=== PATIENT | female | born 1985 | race Caucasian/White ===

== ENCOUNTER 2017-11-07 08:34 | Inpatient (IN) | payer OTHER ==
[2017-11-07 09:21] VITALS: BMI 22.3
--- NOTE | 2017-11-07 10:46 | HP ---
COWS - Scale Resting Pulse: 2= [place] 101-120 Sweatin= Chills/Flushing Restless Observation: 1= Difficult to Sit Still Pupil Size: 1= Pupils >than Normal Bone or Joint Aches: 1= Mild Discomfort Runny Nose/ Eye Tearin= Nasal Congestion GI Upset > 30mins: 2= Nausea/Diarrhea Tremor Observation: 1= Tremor [place], Not Seen Yawning Observation: 2= >3x During Session Anxiety or Irritability: 1=Feels Anxious/Irritable Goose Flesh Skin: 3=Piloerection COWS Score: 16 CIWA Score - CIWA Score Nausea/Vomitin Muscle Tremors: 3 Anxiety: 4-Mod. Anxious/Guarded Agitation: 2 Paroxysmal Sweats: 3 Orientation: 0-Oriented Tacttile Disturbances: 0-None Auditory Disturbances: 0-None Visual Disturbances: 0-None Headache: 0-None Present CIWA-Ar Total Score: 15 Admission ROS BHS - HPI Chief Complaint: alcohol and heroin and benzodiazepine sx when she does not use Allergies/Adverse Reactions: Allergies Allergy/AdvReac Type Severity Reaction Status Date / Time amoxicillin Allergy Severe Difficulty Verified 11/07/17 10:02 Breathing Penicillins Allergy Severe Difficulty Verified 11/07/17 10:01 Breathing History of Present Illness: 31 yo f with polysubstance use and dependence, heroin, klonapin, alcohol and crack cocaine - heavy use last week. Has withdrawal sx when she stops using, very tired at this point and poor historian. last used this am, requested suboxone detox but discussed that methadone would be safer beasue of recent heroin use. will consider [facility] suboxone in rehab. after detox h/o seizure 2/2 cocaine use, give h/o hallucinations and dts when she has stopped using inthe past. smokes 1PPD pmhx ptsd, cutter, suicide attmepts in past, thirsty anxiety depression and insomnia reported Exam Limitations: No Limitations - Ebola screening Have you traveled outside of the country in the last 21 days: No (N) Have you had contact with anyone from an Ebola affected area: No Have you been sick,other than usual withdrawal symptoms: No Do you have a fever: No - Review of Systems Constitutional: Chills, Loss of Appetite, Malaise, Night Sweats, Changes in sleep, Unintentional Wgt. Loss EENT: reports: Tearing, Nose Congestion Respiratory: reports: No Symptoms reported Cardiac: reports: No Symptoms Reported GI: reports: Diarrhea, Nausea, Poor Appetite, Poor Fluid Intake, Indigestion, Abdominal cramping : reports: No Symptoms Reported Musculoskeletal: reports: Back Pain, Muscle Pain Integumentary: reports: Flushing, Sweating Neuro: reports: Seizure (from cocaien use in past), Tremors Endocrine: reports: Flushing, Increased Thirst Hematology: reports: No Symptoms Reported Psychiatric: reports: Judgement Intact, Mood/Affect Appropiate, Orientated x3, Anxious, Depressed Other Systems: Reviewed and Negative Patient History - Patient Medical History Hx Anemia: No Hx Asthma: No Hx Chronic Obstructive Pulmonary Disease (COPD): No Hx Cancer: No Hx Cardiac Disorders: No Hx Congestive Heart Failure: No Hx Hypertension: No Hx Hypercholesterolemia: No Hx Pacemaker: No HX Cerebrovascular Accident: No Hx Seizures: No Hx Dementia: No Hx Diabetes: No Hx Gastrointestinal Disorders: No Hx Liver Disease: No Hx Genitourinary Disorders: No Hx Sexually Transmitted Disorders: No Hx Renal Disease (ESRD): No Hx Thyroid Disease: No Hx Human Immunodeficiency Virus (HIV): No Hx Hepatitis C: No Hx Depression: No Hx Suicide Attempt: Yes (h/o OD, no SI at this time) Hx Bipolar Disorder: No Hx Schizophrenia: No Other Medical History: PTSD, former cutter - Patient Surgical History Past Surgical History: No - PPD History Previous Implant?: Yes Documented Results: Negative w/o proof Implanted On Prior R Admission?: No - Reproductive History Last Menstrual Period: 10/24/17 Patient : No - Smoking Cessation Smoking history: Current every day smoker Have you smoked in the past 12 months: Yes Aproximately how many cigarettes per day: 20 Hx Chewing Tobacco Use: No Initiated information on smoking cessation: Yes 'Breaking Loose' booklet given: 11/07/17 - Substance & Tx. History Hx Alcohol Use: Yes Hx Substance Use: Yes Substance Use Type: Alcohol, Cocaine, Heroin, Marijuana, Opiates, Prescribed, Tranquilizers Hx Substance Use Treatment: Yes - Substances Abused Alcohol Route: Oral Frequency: Daily Amount used: whiskey(1 quart) Age of first use: 16 Date of Last Use: 11/06/17 Cocaine Route: Inhalation Frequency: Daily Amount used: 2 grams Age of first use: 17 Date of Last Use: 11/05/17 Crack Route: Smoking Frequency: Daily Amount used: $60-100 Age of first use: 29 Date of Last Use: 11/07/17 Heroin Route: Inhalation Frequency: Daily Amount used: 10 bags Age of first use: 29 Date of Last Use: 11/06/17 Benzodiazepine (Klonopin) Route: Oral Frequency: Daily Amount used: 4-6 pills Age of first use: 28 Date of Last Use: 11/06/17 Alprazolam (Xanax) Route: Oral Frequency: Daily Amount used: 2mg bar Age of first use: 30 Date of Last Use: 11/06/17 Family Disease History - Family Disease History Family Disease History: Other: Father (alcoholism), Mother (opiate addiction and crack cocaine) Admission Physical Exam S - Vital Signs Vital Signs: Vital Signs - 24 hr 11/07/17 09:16 Temperature 98.7 F Pulse Rate 101 H Respiratory 20 Rate Blood Pressure 117/76 - Physical General Appearance: Yes: Nourished, Appropriately Dressed, Disheveled, Mild Distress, Thin, Tremorous, Irritable, Sweating, Anxious HEENTM: Yes: Within Normal Limits, EOMI, Hearing grossly Normal, Normal ENT Inspection, Normocephalic, Normal Voice, NAVI, Pharynx Normal, Nasal Congestion , Rhinorrhea Respiratory: Yes: Within Normal Limits, Chest Non-Tender, Lungs Clear, Normal Breath Sounds, No Respiratory Distress, No Accessory Muscle Use Neck: Yes: Within Normal Limits, No masses,lesions,Nodules, Supple, Trachea in good position Breast: Yes: Breast Exam Deferred Cardiology: Yes: Within Normal Limits, Regular Rhythm, Regular Rate, S1, S2 Abdominal: Yes: Within Normal Limits, Normal Bowel Sounds, Non Tender, Flat, Soft, Increased Bowel Sounds Genitourinary: Yes: Within Normal Limits Back: Yes: Normal Inspection, Muscle Spasm Musculoskeletal: Yes: full range of Motion, Gait Steady, Pelvis Stable, Back pain, Muscle Pain Extremities: Yes: Normal Capillary Refill, Normal Range of Motion, Tremors, Other (old cutting scars) Neurological: Yes: 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, Fully Oriented, Alert, Motor Strength 5/5, Normal Response, Depressed Affect Integumentary: Yes: Normal Color, Warm, Diaphoresis, Track Byn[place] (no infection) , Other (poor skin trugor) Lymphatic: Yes: Within Normal Limits - Diagnostic (1) Opioid dependence with withdrawal Current Visit: Yes Status: Acute (2) Sedative, hypnotic or anxiolytic dependence with withdrawal, uncomplicated Current Visit: Yes Status: Acute (3) Cocaine dependence Current Visit: Yes Status: Acute (4) Nicotine dependence Current Visit: Yes Status: Acute (5) Alcohol dependence with uncomplicated withdrawal Current Visit: Yes Status: Acute (6) PTSD (post-traumatic stress disorder) Current Visit: Yes Status: Acute (7) Suicide attempt Current Visit: Yes Status: Acute (8) Dehydration Current Visit: Yes Status: Acute Cleared for Admission [facility] - Detox or Rehab [facility] Level of Care: Medically Managed Detox Regimen/Protocol: Methadone/Valium [facility] Breath Alcohol Content Breath Alcohol Content: 0 Urine Pregancy Test - Result Urine Test Results: Negative- NO Line Present Urine Drug Screen - Results Drug Screen Negative: No Urine Drug Screen Results: THC-Marijuana, BAUTISTA-Cocaine, OPI-Opiates, AMP- Amphetamines, BZO-Benzodiazepines
[2017-11-07] MEDS ORDERED: MAG HYDROX/AL HYDROX/SIMETH 30 ML UNIT-DOSE CUP PO PRN (10:52)
[2017-11-07] MEDS ORDERED: P-EPHED 60MG/TRIPROLIDI 2.5MG TABLET PO PRN (10:52)
[2017-11-07] MEDS ORDERED: MAGNESIUM CITRATE 300 ML BOTTLE PO PRN (10:52)
[2017-11-07] MEDS ORDERED: MAGNESIUM HYDROX 2400MG/30ML ORAL SUSPENSION 30 ML CUP PO PRN (10:52)
[2017-11-07] MEDS ORDERED: MENTHOL/PHENOL 1 EACH UD MM PRN (10:52)
[2017-11-07] MEDS ORDERED: LOPERAMIDE HCL 2 MG CAPSULE PO PRN (10:52)
[2017-11-07] MEDS ORDERED: ACETAMINOPHEN 325 MG TABLET (FP) PO PRN (10:52)
[2017-11-07] MEDS ORDERED: guaiFENesin/D-METHORPHAN HB 10 ML UNIT-DOSE CUPS PO PRN (10:52)
[2017-11-07] MEDS ORDERED: diazePAM 5 MG TABLET PO ONE (11:15)
[2017-11-07] MEDS ORDERED: METHADONE HCL 10 MG TABLET (FOR DETOX USE ONLY) PO ONE ×2 (11:16→23:00)
[2017-11-07] MEDS: NICOTINE 21 MG/24 HOURS TOPICAL PATCH TD SCH (12:12)
[2017-11-07] MEDS: diazePAM 5 MG TABLET PO SCH ×2 (15:38→22:33)
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
[2017-11-07 17:05] LABS: URINE APPEARANCE SLCLOUDY; URINE BILIRUBIN NEGATIVE (NEGATIVE); URINE BLOOD 1+ (NEGATIVE); URINE COLOR DKYELLOW; URINE GLUCOSE (UA) NEGATIVE (NEGATIVE); URINE KETONE TRACE (NEGATIVE); URINE LEUK ESTERASE NEGATIVE (NEGATIVE); URINE NITRITE POSITIVE (NEGATIVE); URINE PROTEIN NEGATIVE (NEGATIVE); URINE UROBILINOGEN NEGATIVE mg/dL (0.2-1.0)
[2017-11-07] MEDS: NICOTINE POLACRILEX 4 MG GUM BUC PRN (18:12)
[2017-11-07] MEDS: diazePAM 5 MG TABLET PO PRN (18:12)
[2017-11-07 18:26] LABS: CALCIUM OXALATE CRYSTALS FEW /hpf (NONE SEEN); EPI CELLS RARE /HPF (FEW); URINE BACTERIA MODERATE /hpf (NONE SEEN); URINE MUCUS MANY
[2017-11-07] MEDS: GABAPENTIN 100 MG CAPSULE (FP) PO SCH (22:32)
[2017-11-07] MEDS: THIAMINE HCL 100 MG TABLET (FP) PO SCH (22:32)
[2017-11-08] MEDS: diazePAM 5 MG TABLET PO SCH ×3 (05:55→22:23)
[2017-11-08] MEDS: GABAPENTIN 100 MG CAPSULE (FP) PO SCH ×3 (05:55→22:22)
[2017-11-08] MEDS ORDERED: METHADONE HCL 10 MG TABLET (FOR DETOX USE ONLY) PO SCH (10:00)
[2017-11-08 10:05] LABS: HEMATOCRIT 42.2 % (32.4-45.2); HEMOGLOBIN 13.7 GM/dL (10.7-15.3); MCHC 32.5 g/dl (32.0-36.0); MEAN CELL VOLUME 92.4 fl (80-96); MEAN PLT VOLUME 10.8 fl (7.5-11.1); PLATELET COUNT 258 K/MM3 (134-434); RBC 4.56 M/mm3 (3.60-5.2); RDW 14.4 % (11.6-15.6); WHITE BLOOD COUNT 10.5 K/mm3 (4.0-10.0)
[2017-11-08 10:21] LABS: CHLORIDE 104 mmol/L (98-107); POTASSIUM 3.9 mmol/L (3.5-5.1); SODIUM 139 mmol/L (136-145)
[2017-11-08] MEDS: NICOTINE 21 MG/24 HOURS TOPICAL PATCH TD SCH (10:23)
[2017-11-08] MEDS: PRENATAL VITAMINS W/ FOLIC ACID TABLET (FP) PO SCH (10:24)
[2017-11-08] MEDS: NICOTINE POLACRILEX 4 MG GUM BUC PRN ×4 (10:24→22:25)
[2017-11-08] MEDS: diazePAM 5 MG TABLET PO PRN ×2 (10:25→17:14)
[2017-11-08 10:34] LABS: ALBUMIN 3.8 g/dl (3.4-5.0); ALK PHOS 79 U/L (45-117); ANION GAP 6 (8-16); BILIRUBIN,TOTAL 0.4 mg/dL (0.2-1.0); BLOOD UREA NITROGEN 9 mg/dL (7-18); CO2 29 mmol/L (21-32); CREATININE 0.7 mg/dL (0.55-1.02); GLUCOSE,RANDOM 101 mg/dL (74-106); SGOT/AST 14 U/L (15-37); SGPT/ALT 21 U/L (12-78); TOT PROT 6.6 g/dl (6.4-8.2)
--- NOTE | 2017-11-08 11:30 | EKG ---
Test Reason : Blood Pressure : / mmHG Vent. Rate : 093 BPM Atrial Rate : 093 BPM P-R Int : 118 ms QRS Dur : 084 ms QT Int : 356 ms P-R-T Axes : 060 046 046 degrees QTc Int : 442 ms NORMAL SINUS RHYTHM POSSIBLE LEFT ATRIAL ENLARGEMENT BORDERLINE ECG NO PREVIOUS ECGS AVAILABLE Confirmed by JAYNE HERNANDEZ, SHAI ([id number]) on 11/08/2017 11:29:33 AM Referred By: Confirmed By:SHAI GODOY MD
--- NOTE | 2017-11-08 15:20 | PN ---
[facility] CIWA - CIWA Score Nausea/Vomitin Muscle Tremors: 2 Anxiety: 3 Agitation: 3 Paroxysmal Sweats: 2 Orientation: 0-Oriented Tacttile Disturbances: 2-Mild Itch/Numbness/Burn Auditory Disturbances: 0-None Visual Disturbances: 0-None Headache: 0-None Present CIWA-Ar Total Score: 14 S COWS - Scale Resting Pulse: 1= [place] 81-100 Sweatin=Flushed/Facial Moisture Restless Observation: 1= Difficult to Sit Still Pupil Size: 1= Pupils >than Normal Bone or Joint Aches: 1= Mild Discomfort Runny Nose/ Eye Tearin= Nasal Congestion GI Upset > 30mins: 1= Stomach Cramp Tremor Observation of Outstretched Hands: 2= Slight Tremor Visible Yawning Observation: 0= None Anxiety or Irritability: 2=Irritable/Anxious Goose Flesh Skin: 0=Smooth Skin COWS Score: 12 S Progress Note (SOAP) Subjective: Aches, nausea & vomiting, Objective: 11/08/17 15:28 Vital Signs Temperature 98.4 F 11/08/17 14:08 Pulse Rate 93 H 11/08/17 14:08 Respiratory Rate 18 11/08/17 14:08 Blood Pressure 117/74 11/08/17 14:08 O2 Sat by Pulse Oximetry (%) Laboratory Last Values WBC 10.5 K/mm3 (4.0-10.0) H 11/08/17 06:00 RBC 4.56 M/mm3 (3.60-5.2) 11/08/17 06:00 Hgb 13.7 GM/dL (10.7-15.3) 11/08/17 06:00 Hct 42.2 % (32.4-45.2) 11/08/17 06:00 MCV 92.4 fl (80-96) 11/08/17 06:00 MCH 30.0 pg (25.7-33.7) 11/08/17 06:00 MCHC 32.5 g/dl (32.0-36.0) 11/08/17 06:00 RDW 14.4 % (11.6-15.6) 11/08/17 06:00 Plt Count 258 K/MM3 (134-434) 11/08/17 06:00 MPV 10.8 fl (7.5-11.1) 11/08/17 06:00 Sodium 139 mmol/L (136-145) 11/08/17 06:00 Potassium 3.9 mmol/L (3.5-5.1) 11/08/17 06:00 Chloride 104 mmol/L (98-107) 11/08/17 06:00 Carbon Dioxide 29 mmol/L (21-32) 11/08/17 06:00 Anion Gap 6 (8-16) L 11/08/17 06:00 BUN 9 mg/dL (7-18) 11/08/17 06:00 Creatinine 0.7 mg/dL (0.55-1.02) 11/08/17 06:00 Creat Clearance w eGFR > 60 (>60) 11/08/17 06:00 Random Glucose 101 mg/dL (74-106) 11/08/17 06:00 Calcium 9.0 mg/dL (8.5-10.1) 11/08/17 06:00 Total Bilirubin 0.4 mg/dL (0.2-1.0) 11/08/17 06:00 AST 14 U/L (15-37) L 11/08/17 06:00 ALT 21 U/L (12-78) 11/08/17 06:00 Alkaline Phosphatase 79 U/L (45-117) 11/08/17 06:00 Total Protein 6.6 g/dl (6.4-8.2) 11/08/17 06:00 Albumin 3.8 g/dl (3.4-5.0) 11/08/17 06:00 Urine Color Dkyellow 11/07/17 13:00 Urine Appearance Slcloudy 11/07/17 13:00 Urine pH 5.0 (5.0-8.0) 11/07/17 13:00 Ur Specific [place] 1.020 (1.001-1.035) 11/07/17 13:00 Urine Protein Negative (NEGATIVE) 11/07/17 13:00 Urine Glucose (UA) Negative (NEGATIVE) 11/07/17 13:00 Urine Ketones Trace (NEGATIVE) H 11/07/17 13:00 Urine Blood 1+ (NEGATIVE) H 11/07/17 13:00 Urine Nitrite Positive (NEGATIVE) 11/07/17 13:00 Urine Bilirubin Negative (NEGATIVE) 11/07/17 13:00 Urine Urobilinogen Negative mg/dL (0.2-1.0) 11/07/17 13:00 Ur Leukocyte Esterase Negative (NEGATIVE) 11/07/17 13:00 Urine WBC (Auto) 3 /hpf (3-5) 11/07/17 13:00 Urine RBC (Auto) 7 /hpf (0-3) 11/07/17 13:00 Ur Epithelial Cells Rare /HPF (FEW) 11/07/17 13:00 Calcium Oxalate Crystal Few /hpf (NONE SEEN) 11/07/17 13:00 Urine Bacteria Moderate /hpf (NONE SEEN) 11/07/17 13:00 Urine Mucus Many 11/07/17 13:00 RPR Titer Nonreactive (NONREACTIVE) 11/08/17 06:00 HIV 1&2 Antibody Screen Negative 11/07/17 11:00 HIV P24 Antigen Negative 11/07/17 11:00 Labs noted: UA with positive Nitrites Assessment: 11/08/17 15:30 Withdrawal symptoms UTI Plan: Continue detox Urine Culture, Bactrim BID
[2017-11-08] MEDS ORDERED: SULFAMETHOXAZOLE/TRIMETHOPRIM 800MG/160MG D.S. TABLET PO ONE (15:57)
[2017-11-08] MEDS: IBUPROFEN 400 MG TABLET (FP) PO PRN ×2 (16:21→22:24)
[2017-11-08] MEDS: SULFAMETHOXAZOLE/TRIMETHOPRIM 800MG/160MG D.S. TABLET PO SCH (22:22)
[2017-11-08] MEDS: THIAMINE HCL 100 MG TABLET (FP) PO SCH (22:23)
[2017-11-09] MEDS: GABAPENTIN 100 MG CAPSULE (FP) PO SCH ×3 (05:21→22:10)
[2017-11-09] MEDS: diazePAM 5 MG TABLET PO PRN ×2 (05:22→14:08)
[2017-11-09] MEDS: NICOTINE POLACRILEX 4 MG GUM BUC PRN ×6 (05:23→22:14)
[2017-11-09] MEDS: METHADONE HCL 5 MG TABLET (FOR DETOX USE ONLY) PO SCH (10:27)
[2017-11-09] MEDS: diazePAM 5 MG TABLET PO SCH ×2 (10:27→22:10)
[2017-11-09] MEDS: SULFAMETHOXAZOLE/TRIMETHOPRIM 800MG/160MG D.S. TABLET PO SCH ×2 (10:27→22:10)
[2017-11-09] MEDS: NICOTINE 21 MG/24 HOURS TOPICAL PATCH TD SCH (10:27)
[2017-11-09] MEDS: PRENATAL VITAMINS W/ FOLIC ACID TABLET (FP) PO SCH (10:27)
[2017-11-09] MEDS: IBUPROFEN 400 MG TABLET (FP) PO PRN ×2 (10:31→22:11)
--- NOTE | 2017-11-09 11:32 | PN ---
[facility] CIWA - CIWA Score Nausea/Vomitin Muscle Tremors: 3 Anxiety: 3 Agitation: 3 Paroxysmal Sweats: 1-Minimal Palms Moist Orientation: 0-Oriented Tacttile Disturbances: 0-None Auditory Disturbances: 0-None Visual Disturbances: 0-None Headache: 0-None Present CIWA-Ar Total Score: 12 S COWS - Scale Resting Pulse: 1= [place] 81-100 Sweatin=Flushed/Facial Moisture Restless Observation: 3= Extraneous Movement Pupil Size: 0= Normal to Room Light Bone or Joint Aches: 1= Mild Discomfort Runny Nose/ Eye Tearin= Nasal Congestion GI Upset > 30mins: 1= Stomach Cramp Tremor Observation of Outstretched Hands: 2= Slight Tremor Visible Yawning Observation: 0= None Anxiety or Irritability: 2=Irritable/Anxious Goose Flesh Skin: 0=Smooth Skin COWS Score: 13 [facility] Progress Note (SOAP) Subjective: Sweats, chills, tremors c/o vag discharge with fishy odor Objective: 11/09/17 11:35 Vital Signs Temperature 98.1 F 11/09/17 10:00 Pulse Rate 93 H 11/09/17 10:00 Respiratory Rate 16 11/09/17 10:00 Blood Pressure 122/71 11/09/17 10:00 O2 Sat by Pulse Oximetry (%) Laboratory Last Values WBC 10.5 K/mm3 (4.0-10.0) H 11/08/17 06:00 RBC 4.56 M/mm3 (3.60-5.2) 11/08/17 06:00 Hgb 13.7 GM/dL (10.7-15.3) 11/08/17 06:00 Hct 42.2 % (32.4-45.2) 11/08/17 06:00 MCV 92.4 fl (80-96) 11/08/17 06:00 MCH 30.0 pg (25.7-33.7) 11/08/17 06:00 MCHC 32.5 g/dl (32.0-36.0) 11/08/17 06:00 RDW 14.4 % (11.6-15.6) 11/08/17 06:00 Plt Count 258 K/MM3 (134-434) 11/08/17 06:00 MPV 10.8 fl (7.5-11.1) 11/08/17 06:00 Sodium 139 mmol/L (136-145) 11/08/17 06:00 Potassium 3.9 mmol/L (3.5-5.1) 11/08/17 06:00 Chloride 104 mmol/L (98-107) 11/08/17 06:00 Carbon Dioxide 29 mmol/L (21-32) 11/08/17 06:00 Anion Gap 6 (8-16) L 11/08/17 06:00 BUN 9 mg/dL (7-18) 11/08/17 06:00 Creatinine 0.7 mg/dL (0.55-1.02) 11/08/17 06:00 Creat Clearance w eGFR > 60 (>60) 11/08/17 06:00 Random Glucose 101 mg/dL (74-106) 11/08/17 06:00 Calcium 9.0 mg/dL (8.5-10.1) 11/08/17 06:00 Total Bilirubin 0.4 mg/dL (0.2-1.0) 11/08/17 06:00 AST 14 U/L (15-37) L 11/08/17 06:00 ALT 21 U/L (12-78) 11/08/17 06:00 Alkaline Phosphatase 79 U/L (45-117) 11/08/17 06:00 Total Protein 6.6 g/dl (6.4-8.2) 11/08/17 06:00 Albumin 3.8 g/dl (3.4-5.0) 11/08/17 06:00 Urine Color Dkyellow 11/07/17 13:00 Urine Appearance Slcloudy 11/07/17 13:00 Urine pH 5.0 (5.0-8.0) 11/07/17 13:00 Ur Specific [place] 1.020 (1.001-1.035) 11/07/17 13:00 Urine Protein Negative (NEGATIVE) 11/07/17 13:00 Urine Glucose (UA) Negative (NEGATIVE) 11/07/17 13:00 Urine Ketones Trace (NEGATIVE) H 11/07/17 13:00 Urine Blood 1+ (NEGATIVE) H 11/07/17 13:00 Urine Nitrite Positive (NEGATIVE) 11/07/17 13:00 Urine Bilirubin Negative (NEGATIVE) 11/07/17 13:00 Urine Urobilinogen Negative mg/dL (0.2-1.0) 11/07/17 13:00 Ur Leukocyte Esterase Negative (NEGATIVE) 11/07/17 13:00 Urine WBC (Auto) 3 /hpf (3-5) 11/07/17 13:00 Urine RBC (Auto) 7 /hpf (0-3) 11/07/17 13:00 Ur Epithelial Cells Rare /HPF (FEW) 11/07/17 13:00 Calcium Oxalate Crystal Few /hpf (NONE SEEN) 11/07/17 13:00 Urine Bacteria Moderate /hpf (NONE SEEN) 11/07/17 13:00 Urine Mucus Many 11/07/17 13:00 RPR Titer Nonreactive (NONREACTIVE) 11/08/17 06:00 HIV 1&2 Antibody Screen Negative 11/07/17 11:00 HIV P24 Antigen Negative 11/07/17 11:00 Labs noted, UA positive for nitrites 11/09/17 11:39 Assessment: 11/09/17 11:38 withdrawal sx BV Plan: Continue detox Continue Bactrim
[2017-11-09] MEDS: hydrOXYzine PAMOATE 50 MG CAPSULE (FP) PO PRN (22:11)
[2017-11-09] MEDS: THIAMINE HCL 100 MG TABLET (FP) PO SCH (22:42)
[2017-11-10] MEDS: GABAPENTIN 100 MG CAPSULE (FP) PO SCH ×3 (05:20→22:24)
[2017-11-10] MEDS: diazePAM 5 MG TABLET PO PRN (05:22)
[2017-11-10] MEDS: NICOTINE POLACRILEX 4 MG GUM BUC PRN ×5 (05:23→22:25)
[2017-11-10] MEDS: diazePAM 5 MG TABLET PO SCH ×2 (10:32→22:23)
[2017-11-10] MEDS: NICOTINE 21 MG/24 HOURS TOPICAL PATCH TD SCH (10:32)
[2017-11-10] MEDS: METHADONE HCL 5 MG TABLET (FOR DETOX USE ONLY) PO SCH (10:32)
[2017-11-10] MEDS: PRENATAL VITAMINS W/ FOLIC ACID TABLET (FP) PO SCH (10:32)
[2017-11-10] MEDS: SULFAMETHOXAZOLE/TRIMETHOPRIM 800MG/160MG D.S. TABLET PO SCH ×2 (10:32→22:23)
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
[2017-11-10] MEDS: metroNIDAZOLE 250 MG TABLET PO SCH ×2 (14:02→22:23)
[2017-11-10] MEDS: IBUPROFEN 400 MG TABLET (FP) PO PRN (15:35)
[2017-11-10] MEDS: hydrOXYzine PAMOATE 50 MG CAPSULE (FP) PO PRN (17:25)
[2017-11-10] MEDS: THIAMINE HCL 100 MG TABLET (FP) PO SCH (22:23)
[2017-11-11] MEDS: NICOTINE POLACRILEX 4 MG GUM BUC PRN ×4 (01:11→22:09)
[2017-11-11] MEDS: hydrOXYzine PAMOATE 50 MG CAPSULE (FP) PO PRN ×4 (01:11→22:09)
[2017-11-11] MEDS: metroNIDAZOLE 250 MG TABLET PO SCH ×3 (05:18→22:09)
[2017-11-11] MEDS: GABAPENTIN 100 MG CAPSULE (FP) PO SCH ×3 (05:18→22:09)
[2017-11-11] MEDS: IBUPROFEN 400 MG TABLET (FP) PO PRN ×2 (05:21→17:18)
[2017-11-11] MEDS ORDERED: METHADONE HCL 10 MG TABLET (FOR DETOX USE ONLY) PO SCH (10:00)
[2017-11-11] MEDS ORDERED: diazePAM 5 MG TABLET PO SCH (10:00)
--- NOTE | 2017-11-11 10:18 | PN ---
[facility] Progress Note (SOAP) Subjective: sweats anxiety interrupted sleep Objective: 11/11/17 10:17 Vital Signs Temperature 97.9 F 11/11/17 05:59 Pulse Rate 83 11/11/17 05:59 Respiratory Rate 18 11/11/17 05:59 Blood Pressure 112/73 11/11/17 05:59 O2 Sat by Pulse Oximetry (%) aaox3 ambulating no acute distress Assessment: 11/11/17 10:17 withdrawal sx Plan: continue detox increase fluids d/c if there is a rehab placement for tomorrow otherwise pt will remain one more day.
[2017-11-11] MEDS: SULFAMETHOXAZOLE/TRIMETHOPRIM 800MG/160MG D.S. TABLET PO SCH ×2 (10:27→22:08)
[2017-11-11] MEDS: PRENATAL VITAMINS W/ FOLIC ACID TABLET (FP) PO SCH (10:27)
[2017-11-11] MEDS: NICOTINE 21 MG/24 HOURS TOPICAL PATCH TD SCH (10:28)
[2017-11-11] MEDS: THIAMINE HCL 100 MG TABLET (FP) PO SCH (22:09)
[2017-11-12] MEDS: NICOTINE POLACRILEX 4 MG GUM BUC PRN ×3 (01:49→09:59)
[2017-11-12] MEDS: GABAPENTIN 100 MG CAPSULE (FP) PO SCH (05:35)
[2017-11-12] MEDS: metroNIDAZOLE 250 MG TABLET PO SCH (05:35)
[2017-11-12] MEDS: hydrOXYzine PAMOATE 50 MG CAPSULE (FP) PO PRN ×2 (05:36→10:57)
[2017-11-12] MEDS ORDERED: METHADONE HCL 5 MG TABLET (FOR DETOX USE ONLY) PO SCH (06:00)
--- NOTE | 2017-11-12 09:46 | DS ---
[facility] Detox Discharge Summary Admission Date: 11/07/17 Discharge Date: 11/12/17 - History Present History: Alcohol Dependence, Cocaine Dependence, Sedative Dependence - Physical Exam Results Vital Signs: Vital Signs Temperature 98.1 F 11/12/17 06:56 Pulse Rate 85 11/12/17 06:56 Respiratory Rate 18 11/12/17 06:56 Blood Pressure 115/58 11/12/17 06:56 O2 Sat by Pulse Oximetry (%) - Treatment Hospital Course: Detox Protocol Followed, Detoxed Safely, Responded well, Discharged Condition Good, Rehab Referral Accepted - Medication Discharge Medications: Ambulatory Orders Metronidazole [Flagyl -] 500 mg PO TID #12 tablet 11/12/17 - Diagnosis (1) Alcohol dependence with uncomplicated withdrawal Current Visit: Yes Status: Chronic (2) Cocaine dependence Current Visit: Yes Status: Chronic Qualifiers: Substance use status: uncomplicated Qualified Code(s): F14.20 - Cocaine dependence, uncomplicated (3) Dehydration Current Visit: No Status: Resolved (4) REGI (generalized anxiety disorder) Current Visit: Yes Status: Acute (5) Nicotine dependence Current Visit: Yes Status: Chronic Qualifiers: Nicotine product type: cigarettes Substance use status: uncomplicated Qualified Code(s): F17.210 - Nicotine dependence, cigarettes, uncomplicated (6) Opioid dependence with withdrawal Current Visit: Yes Status: Chronic (7) Sedative, hypnotic or anxiolytic dependence with withdrawal, uncomplicated Current Visit: Yes Status: Chronic (8) Substance induced mood disorder Current Visit: Yes Status: Acute (9) Suicide attempt Current Visit: Yes Status: Acute (10) MDD (major depressive disorder) Current Visit: No Status: Chronic (11) Borderline personality disorder Current Visit: No Status: Suspected (12) PTSD (post-traumatic stress disorder) Current Visit: No Status: Suspected - AMA Did Patient [facility] Against [facility]
[2017-11-12] MEDS: PRENATAL VITAMINS W/ FOLIC ACID TABLET (FP) PO SCH (09:58)
[2017-11-12] MEDS: NICOTINE 21 MG/24 HOURS TOPICAL PATCH TD SCH (10:01)
[2017-11-12 10:48] VITALS: BP 112/67; PULSE 88; TEMP 97.7
[2017-11-12] MEDS: IBUPROFEN 400 MG TABLET (FP) PO PRN (10:57)
== END 2017-11-12 11:48 | disposition home or self-care (01) | DRG 773 ==
LOC: YASAS 08:34 → Y6N 10:50
PROVIDERS: ADMIT Internal Medicine; ATTEND Internal Medicine
PROC: HZ2ZZZZ Detoxification Services for Substance Abuse Treatment (ICD-10-PCS; principal; 2017-11-07)
DX: F11.23 Opioid dependence with withdrawal (principal); F13.230 Sedative, hypnotic or anxiolytic dependence with withdrawal, uncomplicated; F10.230 Alcohol dependence with withdrawal, uncomplicated; F14.20 Cocaine dependence, uncomplicated; F17.210 Nicotine dependence, cigarettes, uncomplicated; F41.1 Generalized anxiety disorder; F19.24 Other psychoactive substance dependence with psychoactive substance-induced mood disorder; F33.9 Major depressive disorder, recurrent, unspecified; F60.3 Borderline personality disorder; F43.10 Post-traumatic stress disorder, unspecified; E86.0 Dehydration; N39.0 Urinary tract infection, site not specified; Z88.0 Allergy status to penicillin; Z88.1 Allergy status to other antibiotic agents; Z91.5 Personal history of self-harm; Z59.0 Homelessness
CPT/HCPCS: 36415; 80053; 81003; 81015; 85027; 86593; 87086; 87389; 93005; 93010

== ENCOUNTER 2021-09-08 06:15 | Emergency (ER) | payer OTHER ==
[2021-09-08 07:03] VITALS: BMI 24.0
[2021-09-08] MEDS ORDERED: CLINDAMYCIN 600MG PREMIX IVPB 600 MG/50 ML BAG IVPB ONE ×2 (07:23→08:33)
[2021-09-08] MEDS ORDERED: SODIUM CHLORIDE 1,000 ML IV STA (07:23)
[2021-09-08] MEDS ORDERED: ACETAMINOPHEN 1000 MG/100 ML VIAL IVPB ONE (07:25)
[2021-09-08] MEDS ORDERED: ACETAMINOPHEN INJECTION 100 ML IVPB ONE (08:34)
[2021-09-08 10:41] LABS: BASO % 0.2 % (0-2.0); EOS % 1.6 % (0-4.5); HEMATOCRIT 39.1 % (32.4-45.2); HEMOGLOBIN 13.4 GM/dL (10.7-15.3); LYMPH % 24.3 % (8-40); MCH 29.2 pg (25.7-33.7); MCHC 34.4 g/dl (32.0-36.0); MEAN CELL VOLUME 84.8 fl (80-96); MEAN PLT VOLUME 8.8 fl (7.5-11.1); MONO % 6.8 % (3.8-10.2); NEUT % 67.1 % (42.8-82.8); PLATELET COUNT 282 10^3/uL (134-434); RBC 4.61 M/mm3 (3.60-5.2); RDW 13.4 % (11.6-15.6); WHITE BLOOD COUNT 11.1 K/mm3 (4.0-10.0)
[2021-09-08 10:59] LABS: CHLORIDE 103 mmol/L (98-107); SODIUM 138 mmol/L (136-145)
[2021-09-08 11:01] LABS: CALCIUM 9.6 mg/dL (8.5-10.1)
[2021-09-08 11:02] LABS: ALBUMIN 3.9 g/dl (3.4-5.0); ANION GAP 8 MMOL/L (8-16); BLOOD UREA NITROGEN 10.1 mg/dL (7-18); CO2 27 mmol/L (21-32); GLUCOSE,RANDOM 59 mg/dL (74-106)
[2021-09-08 11:05] LABS: CREATININE 0.7 mg/dL (0.55-1.3); SGOT/AST 19 U/L (15-37); SGPT/ALT 29 U/L (13-61)
[2021-09-08 11:06] LABS: BILIRUBIN,TOTAL 0.3 mg/dL (0.2-1); TOT PROT 7.8 g/dl (6.4-8.2)
[2021-09-08 11:08] LABS: ALK PHOS 100 U/L (45-117)
[2021-09-08] MEDS ORDERED: DALBAVANCIN HCL 1,500 MG in DEXTROSE 5%-WATER - 500 ML IVPB ONE (12:17)
[2021-09-08 15:40] VITALS: TEMP 98
[2021-09-08 15:41] VITALS: BP 110/64; PULSE 84
== END 2021-09-08 15:43 | disposition home or self-care (01) ==
LOC: JER 06:15
PROC: 3E033GC Introduction of Other Therapeutic Substance into Peripheral Vein, Percutaneous Approach (ICD-10-PCS; principal; 2021-09-08)
DX: L03.116 Cellulitis of left lower limb (principal); F11.20 Opioid dependence, uncomplicated
CPT/HCPCS: 36415; 80053; 82550; 83880; 84484; 85025; 87040; 87076; 93005; 93010; 93971-TC; 99285-25; J0131; J0875

== ENCOUNTER 2022-05-01 20:05 | Inpatient (IN) | payer OTHER ==
[2022-05-01 20:28] VITALS: TEMP 98.1; BMI 20.9
[2022-05-02] MEDS ORDERED: LORazepam 2 MG/ML SDV VIAL IVPUSH ONE (00:03)
[2022-05-02 00:22] LABS: BASO % 0.5 % (0-2.0); HEMOGLOBIN 12.5 GM/dL (10.7-15.3); LYMPH % 55.6 % (8-40); MCH 27.8 pg (25.7-33.7); MCHC 33.6 g/dl (32.0-36.0); MEAN CELL VOLUME 82.6 fl (80-96); MEAN PLT VOLUME 7.5 fl (7.5-11.1); MONO % 8.3 % (3.8-10.2); NEUT % 32.6 % (42.8-82.8); PLATELET COUNT 315 10^3/uL (134-434); RBC 4.48 M/mm3 (3.60-5.2); RDW 13.5 % (11.6-15.6); WHITE BLOOD COUNT 5.3 K/mm3 (4.0-10.0)
[2022-05-02 00:38] LABS: CHLORIDE 109 mmol/L (98-107); SODIUM 144 mmol/L (136-145)
[2022-05-02 00:41] LABS: ALBUMIN 3.2 g/dl (3.4-5.0); ANION GAP 4 MMOL/L (8-16); BLOOD UREA NITROGEN 10.9 mg/dL (7-18); CO2 31 mmol/L (21-32); GLUCOSE,RANDOM 98 mg/dL (74-106)
[2022-05-02 00:44] LABS: CREATININE 0.8 mg/dL (0.55-1.3); SGOT/AST 51 U/L (15-37); SGPT/ALT 43 U/L (13-61)
[2022-05-02 00:46] LABS: BILIRUBIN,TOTAL 0.3 mg/dL (0.2-1); TOT PROT 6.5 g/dl (6.4-8.2)
[2022-05-02 00:47] LABS: ALK PHOS 125 U/L (45-117)
[2022-05-02 00:48] LABS: INR 1.17 (0.83-1.09); PROTHROMBIN TIME (PATIENT) 13.5 SEC (9.7-13.0)
[2022-05-02 00:51] LABS: ACTIVATED PTT 35.7 SECONDS (25.2-36.5)
[2022-05-02 01:45] LABS: HIV INTERPRETATION NEGATIVE (NEGATIVE)
[2022-05-02] MEDS ORDERED: diazePAM 5 MG TABLET PO PRN (02:28)
[2022-05-02] MEDS ORDERED: FOLIC ACID INJECTION - 1 MG, THIAMINE HCL 100 MG, MULTIVIT INJECTION ADULT 10 ML in SOD... IVPB ONE (02:49)
[2022-05-02] MEDS ORDERED: ACETAMINOPHEN 1000 MG/100 ML BAG IVPB PRN (03:41)
[2022-05-02] MEDS ORDERED: PROCHLORPERAZINE INJECTION 10 MG/2 ML VIAL IVPB PRN (03:47)
[2022-05-02] MEDS ORDERED: CLINDAMYCIN 600MG PREMIX IVPB 600 MG/50 ML BAG IVPB ONE ×2 (04:36→05:42)
[2022-05-02] MEDS ORDERED: diazePAM 5 MG TABLET ONE ×3 (05:23→11:59)
[2022-05-02] MEDS: diazePAM 5 MG TABLET PO SCH ×2 (05:52→12:07)
[2022-05-02] MEDS ORDERED: VANCOMYCIN 1 GRAM (PRE-DOCKED) 1,000 MG/250 ML BAG IVPB ONE ×2 (09:00→09:26)
[2022-05-02] MEDS ORDERED: NICOTINE 14 MG/24 HOURS TOPICAL PATCH TD SCH (10:00)
[2022-05-02] MEDS ORDERED: MEROPENEM 1 GM in DEXTROSE 5%-WATER 100 ML IVPB SCH (10:00)
[2022-05-02] MEDS ORDERED: CLINDAMYCIN 600MG PREMIX IVPB 600 MG/50 ML BAG IVPB SCH (10:00)
[2022-05-02] MEDS ORDERED: THIAMINE HCL 100 MG TABLET (FP) PO SCH (10:00)
[2022-05-02] MEDS ORDERED: FOLIC ACID 1 MG TABLET (FP) PO SCH (10:00)
[2022-05-02] MEDS ORDERED: cloNIDine HCL 0.1 MG TABLET PO PRN (10:08)
[2022-05-02] MEDS ORDERED: NICOTINE POLACRILEX 2 MG GUM BUC PRN (10:11)
[2022-05-02] MEDS ORDERED: NICOTINE 14 MG/24 HOURS TOPICAL PATCH TD ONE (10:51)
[2022-05-02] MEDS ORDERED: FOLIC ACID 1 MG TABLET (FP) ONE (10:51)
[2022-05-02] MEDS ORDERED: methaDONE HCL 10 MG TABLET ONE (10:51)
[2022-05-02] MEDS ORDERED: THIAMINE HCL 100 MG TABLET (FP) ONE (10:54)
[2022-05-02] MEDS ORDERED: AZTREONAM 1 GM in DEXTROSE 5%-WATER - 50 ML IVPB SCH (11:00)
[2022-05-02] MEDS ORDERED: methaDONE HCL 10 MG TABLET PO ONE (11:00)
[2022-05-02] MEDS ORDERED: COLLAGENASE CLOSTRIDIUM HIST. 30 GRAMS TUBE TP SCH (11:30)
[2022-05-02 12:49] VITALS: BP 123/78; PULSE 109
[2022-05-02 13:28] LABS: CALCIUM 9.3 mg/dL (8.5-10.1)
[2022-05-02 13:29] LABS: ALBUMIN 3.2 g/dl (3.4-5.0); BLOOD UREA NITROGEN 7.7 mg/dL (7-18); MAGNESIUM 2.3 mg/dL (1.8-2.4)
[2022-05-02 13:30] LABS: PHOSPHOROUS 2.8 mg/dL (2.5-4.9)
[2022-05-02 13:31] LABS: CREATININE 0.8 mg/dL (0.55-1.3)
[2022-05-02 13:34] LABS: BASO % 0.5 % (0-2.0); BILIRUBIN,TOTAL 0.4 mg/dL (0.2-1); EOS % 1.3 % (0-4.5); HEMATOCRIT 37.3 % (32.4-45.2); HEMOGLOBIN 12.5 GM/dL (10.7-15.3); LYMPH % 43.2 % (8-40); MCH 27.5 pg (25.7-33.7); MCHC 33.6 g/dl (32.0-36.0); MEAN PLT VOLUME 8.4 fl (7.5-11.1); MONO % 7.1 % (3.8-10.2); NEUT % 47.9 % (42.8-82.8); PLATELET COUNT 326 10^3/uL (134-434); RBC 4.55 M/mm3 (3.60-5.2); RDW 13.5 % (11.6-15.6); TOT PROT 6.6 g/dl (6.4-8.2); WHITE BLOOD COUNT 4.8 K/mm3 (4.0-10.0)
[2022-05-03] MEDS ORDERED: diazePAM 5 MG TABLET PO SCH (06:00)
[2022-05-04] MEDS ORDERED: diazePAM 5 MG TABLET PO SCH (06:00)
[2022-05-04] MEDS ORDERED: methaDONE HCL 10 MG TABLET PO ONE (10:00)
[2022-05-05] MEDS ORDERED: diazePAM 5 MG TABLET PO ONE (06:00)
== END 2022-05-02 13:00 | disposition left against medical advice (07) | DRG 384 ==
LOC: JER 20:05 → JERBED 23:26
PROVIDERS: ADMIT Internal Medicine; ATTEND Internal Medicine
DX: S71.151A Open bite, right thigh, initial encounter (principal); L02.415 Cutaneous abscess of right lower limb; F11.23 Opioid dependence with withdrawal; F17.210 Nicotine dependence, cigarettes, uncomplicated; L08.9 Local infection of the skin and subcutaneous tissue, unspecified; W54.0XXA Bitten by dog, initial encounter; Y93.9 Activity, unspecified; Y92.89 Other specified places as the place of occurrence of the external cause; Y99.9 Unspecified external cause status
CPT/HCPCS: 36415; 73701-TC-RT; 80053; 83605; 83735; 84100; 84702; 85025; 85610; 85730; 86850; 86900; 86901; 87040; 87389; 93005; 93010; 99285-25; C9803-CS; U0003; U0005